=== PATIENT | female | born 1965 | race Caucasian/White ===

== ENCOUNTER 2025-04-30 10:17 | Outpatient (CLI) | payer OTHER ==
--- NOTE | 2025-04-30 18:54 | RADIOLOGY REPORT ---
EXAM: MR MRI LOWER EXTREMITY RIGHT HISTORY: PAIN R KNEE COMPARISON: None TECHNIQUE: Multiplanar, multisequence imaging of the right knee was performed without contrast FINDINGS: MEDIAL COMPARTMENT: Intact medial meniscus. No focal chondrosis or subchondral edema. LATERAL COMPARTMENT: Longitudinal horizontal type tear of the anterior body of the lateral meniscus w ith extension to the peripheral 1/3. No focal chondrosis or subchondral edema. PATELLOFEMORAL COMPARTMENT: No focal chondrosis or subchondral edema. CRUCIATE LIGAMENTS: Intermediate to high signal intensity of the anterior cruciate ligament likely re lated to mucoid degeneration. posterior cruciate ligament is intact MEDIAL SUPPORTING STRUCTURES: Intact medial collateral ligament. LATERAL SUPPORTING STRUCTURES: Intact iliotibial band, lateral capsular ligament, fibular collateral ligament, popliteus, and biceps femoris tendons EXTENSOR MECHANISM: Intact JOINT SPACE/FLUID: Small knee joint effusion. Edema in Hoffa's fat pad. BONES: No acute fracture, osseous contusion, or aggressive focal osseous lesion MUSCLES: Normal in signal intensity and morphology NEUROVASCULAR: Unremarkable OTHER: None IMPRESSION: 1. Longitudinal horizontal type tear of the anterior body of the lateral meniscus with extension to t he peripheral 1/3. 2. Intermediate to high signal intensity of the anterior cruciate ligament likely related to mucoid d egeneration. posterior cruciate ligament is intact 3. Small knee joint effusion.
== END 2025-04-30 23:59 | disposition home or self-care (01) ==
LOC: MRI02 10:17
PROVIDERS: ATTEND Dental Hygienist
DX: S83.281A Other tear of lateral meniscus, current injury, right knee, initial encounter (principal); M25.561 Pain in right knee; G89.29 Other chronic pain; R60.0 Localized edema; M25.461 Effusion, right knee; X58.XXXA Exposure to other specified factors, initial encounter; Y93.9 Activity, unspecified; Y92.89 Other specified places as the place of occurrence of the external cause; Y99.8 Other external cause status
CPT/HCPCS: 73721